=== PATIENT | female | born 1940 | race Caucasian/White ===

== ENCOUNTER → 2016-11-07 | Outpatient (CLI) | payer MEDICARE ==
--- NOTE | 2016-11-07 09:22 | CT ---
EXAMINATION TYPE: CT abdomen pelvis wo con DATE OF EXAM: 11/07/2016 7:23 AM COMPARISON: NONE HISTORY: C/O upper abdomen pain CT DLP: 299.2 mGycm Automated exposure control for dose reduction was used. TECHNIQUE: Helical acquisition of images from the lung bases through the pelvis. FINDINGS: LUNG BASES: No significant abnormality is appreciated. There is a lead present in the right ventricle . Posterior diaphragmatic hernias containing fat. AORTA: Atheromatous change is present, there is no evident aneurysm. LIVER/GB: Patient is post cholecystectomy. Liver is unremarkable. PANCREAS: No significant abnormality is seen. There is a moderate-sized duodenal diverticulum, air-fl uid level at the second and third portion of the duodenum. SPLEEN: No significant abnormality is seen. ADRENALS: No significant abnormality is seen. KIDNEYS: Right kidney is absent. REPRODUCTIVE ORGANS: Uterus and adnexal structures are absent. URINARY BLADDER: No significant abnormality is seen. The bladder is decompressed BOWEL: There is a malrotation suspected. Normal position of the fourth portion of the duodenum is no t present, small bowel is right-sided and does not cross midline. Extensive diverticular changes asso ciated with the sigmoid colon. FREE AIR: No Free Air is visible. ASCITES: None visible. PELVIC ADENOPATHY: None visualized. RETROPERITONEAL ADENOPATHY: No Retroperitoneal Adenopathy visible. OSSEOUS STRUCTURES: Degenerative disc changes are present within the visualized spine. Postop change noted to the right hip. IMPRESSION: POSTOP CHANGES. SIZABLE DUODENAL DIVERTICULUM IS SUSPECTED, SUSPECT BOWEL MALROTATION. DIVERTICULOSIS AND ADDITIONAL FINDINGS ABOVE.
== END | disposition home or self-care (01) ==
LOC: RADCTMAIN 06:57
PROVIDERS: ATTEND Family Medicine
DX: R10.9 Unspecified abdominal pain (principal); Z90.5 Acquired absence of kidney; Z98.890 Other specified postprocedural states
CPT/HCPCS: 74176

== ENCOUNTER → 2017-05-24 | Outpatient (CLI) | payer MEDICARE ==
--- NOTE | 2017-05-24 17:15 | XR ---
EXAMINATION TYPE: XR ribs RT w pa chest xray DATE OF EXAM: 05/24/2017 COMPARISON: NONE HISTORY: Rib pain TECHNIQUE: 5 views FINDINGS: I see no pleural effusion or pneumothorax. Lungs are clear of infiltrate. Heart and mediast inum are within normal limits. There is a left axillary pacemaker with the lead tips in the right mary tricle. I see no rib fracture. IMPRESSION: No cardiopulmonary disease. No fracture.
== END | disposition home or self-care (01) ==
LOC: RADXRYALE 16:41
PROVIDERS: ATTEND Family Medicine
DX: R07.81 Pleurodynia (principal)

== ENCOUNTER 2017-09-06 09:07 | Emergency (ER) | payer MEDICARE ==
[2017-09-06 09:13] VITALS: BP 204/81; PULSE 60; RESP 18; TEMP 97.1
--- NOTE | 2017-09-06 09:35 | ED ---
General Adult HPI - General Chief complaint: Fall Stated complaint: right arm pain Time Seen by Provider: 09/06/17 09:16 Source: patient, RN notes reviewed, old records reviewed Mode of arrival: wheelchair Limitations: no limitations - History of Present Illness Initial comments: This is a 77-year-old female to the ER status post fall. Patient is on blood thinners, Xarelto. Patient was walking out of her house did fall off the top step and fell forward landing on her right shoulder and hitting head. No loss of consciousness. Patient complaining of severe right shoulder pain no other complaints - Related Data Home Medications Medication Instructions Recorded Confirmed Atorvastatin [Lipitor] 10 mg PO HS 03/12/14 03/01/15 Metoprolol Succinate [Toprol XL] 50 mg PO BID 03/12/14 03/01/15 Omeprazole 40 mg PO DAILY 03/12/14 03/01/15 Cholecalciferol [Vitamin D3] 2,000 unit PO DAILY 11/29/14 03/01/15 Flecainide Acetate 50 mg PO BID 11/29/14 03/01/15 Rivaroxaban [Xarelto] 20 mg PO DAILY 03/01/15 03/01/15 Previous Rx's Medication Instructions Recorded Clindamycin HCl [Cleocin] 150 mg PO Q8H 7 Days cap 03/10/15 Allergies Allergy/AdvReac Type Severity Reaction Status Date / Time aspirin Allergy Severe Anaphylaxis Verified 09/06/17 09:15 epinephrine Allergy Severe Anaphylaxis Verified 09/06/17 09:15 Penicillins Allergy Severe Anaphylaxis Verified 09/06/17 09:15 Sulfa (Sulfonamide Allergy Severe Anaphylaxis Verified 09/06/17 09:15 Antibiotics) adhesive AdvReac Itching Verified 09/06/17 09:15 alprazolam [From Xanax] AdvReac Confusion Verified 09/06/17 09:15 ciprofloxacin [From Cipro] AdvReac Nausea & Verified 09/06/17 09:15 Vomiting codeine AdvReac Nausea & Verified 09/06/17 09:15 Vomiting hydrocodone AdvReac Nausea & Verified 09/06/17 09:15 Vomiting hydromorphone HCl AdvReac Nausea & Verified 09/06/17 09:15 [From Dilaudid] Vomiting iodine AdvReac Renal Verified 09/06/17 09:15 Failure meperidine HCl [From Demerol] AdvReac Nausea & Verified 09/06/17 09:15 Vomiting morphine AdvReac Nausea, Verified 09/06/17 09:15 chest tightness oxycodone [Oxycodone] AdvReac Nausea & Verified 09/06/17 09:15 Vomiting Review of Systems ROS Statement: Those systems with pertinent positive or pertinent negative responses have been documented in the HPI. ROS Other: All systems not noted in ROS Statement are negative. Past Medical History Past Medical History: Atrial Fibrillation Additional Past Medical History / Comment(s): 11/29/14 Pt is a direct admit to [facility]. Pt had pacemaker inserted to L chest 2 weeks ago for AFIB. The pacer site was edematous post insertion but is actually looking better per pt. This morning. however, pacer site split open. Pt called Dr. Plunkett's office this AM and was instructed to come to hospital. 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 History of Any Multi-Drug Resistant Organisms: None Reported Past Surgical History: Appendectomy, Breast Surgery, Section, Cholecystectomy, Hysterectomy, Orthopedic Surgery, Pacemaker, Tonsillectomy Additional Past Surgical History / Comment(s): repair fx rt leg, knee and ankle x2. Rt kideny removed, bilat mastectomy with breast implants, colonoscopy and egd in past couple months. Past Anesthesia/Blood Transfusion Reactions: Motion Sickness, Postoperative Nausea & Vomiting (PONV) Additional Past Anesthesia/Blood Transfusion Reaction / Comment(s): very sensitive to anesthesia. Past Psychological History: Depression Smoking Status: Former smoker Past Alcohol Use History: None Reported Past Drug Use History: None Reported - Past Family History Father Family Medical History: Cancer Daughter(s) Family Medical History: Cancer General Exam Limitations: no limitations General appearance: alert, in no apparent distress Head exam: Present: atraumatic, normocephalic, normal inspection Eye exam: Present: normal appearance, PERRL, EOMI. Absent: scleral icterus, conjunctival injection, periorbital swelling ENT exam: Present: normal exam, mucous membranes moist Neck exam: Present: normal inspection. Absent: tenderness, meningismus, lymphadenopathy Respiratory exam: Present: normal lung sounds bilaterally. Absent: respiratory distress, wheezes, rales, rhonchi, stridor Cardiovascular Exam: Present: regular rate, normal rhythm, normal heart sounds. Absent: systolic murmur, diastolic murmur, rubs, gallop, clicks GI/Abdominal exam: Present: soft, normal bowel sounds. Absent: distended, tenderness, guarding, rebound, rigid Extremities exam: Present: normal inspection, full ROM, normal capillary refill , other (Right shoulder pain, or decreased range of motion). Absent: tenderness , pedal edema, joint swelling, calf tenderness Back exam: Present: normal inspection Neurological exam: Present: alert, oriented X3, CN II-XII intact Psychiatric exam: Present: normal affect, normal mood Skin exam: Present: warm, dry, intact, normal color. Absent: rash Course Vital Signs 09/06/17 09:09 Temperature 97.1 F L Pulse Rate 60 Respiratory 18 Rate Blood Pressure 204/81 O2 Sat by Pulse 96 Oximetry Medical Decision Making - Medical Decision Making 77 female tear status post fall both ears, suitably and C-spine negative, x-ray right shoulder does show positive humerus fracture, patient will be discharged home with sling, patient control, follow-up with orthopedics - Radiology Data Radiology results: report reviewed (Chest x-ray pelvis x-ray negative for traumatic injury, x-ray shoulder positive for humeral head fracture, CT brain and C-spine negative for traumatic injury), image reviewed Disposition Clinical Impression: Closed right humeral fracture, Fall Disposition: HOME SELF-CARE Condition: Good Instructions: Arm Fracture in Adults (ED) Referrals: Nura Tadeo MD [STAFF PHYSICIAN] - 1-2 days
[2017-09-06] MEDS ORDERED: MORPHINE SULFATE 2 MG/ML SYRINGE IM STA (09:36)
--- NOTE | 2017-09-06 09:59 | XR ---
EXAMINATION TYPE: XR pelvis AP view DATE OF EXAM: 09/06/2017 CLINICAL HISTORY: Pelvic pain post fall. TECHNIQUE: A single AP view of the pelvis is obtained. COMPARISON: None. FINDINGS: There is no acute fracture/dislocation evident in the pelvis. The hip and sacroiliac join ts appear symmetric and unremarkable with mild bilateral femoral acetabular arthropathy demonstrated as medial joint space narrowing and acetabular roof sclerosis. Lateral right femoral fixation plate i s partially visualized with 4 transcortical screws. No evidence of hardware fracture, malalignment or loosening. Single surgical clip is noted along the superior endplate of right lateral aspect of L4 v ertebral body. Surgical clips are also noted within the right upper quadrant from prior cholecystecto my. Visualized bowel gas pattern is nonobstructive with no evidence of bowel enlargement. Mild degene rative changes of the lumbosacral junction are also noted. Generalized mild osseous demineralization . The overlying soft tissue appears unremarkable. IMPRESSION: 1. There is no acute fracture or dislocation in the pelvis. 2. No evidence of right femoral hardware fracture, malalignment or loosening. 3. Generalized mild osseous demineralization. 4. Mild bilateral femoral acetabular arthropathy and degenerative changes of the lumbosacral junction .
--- NOTE | 2017-09-06 09:59 | XR ---
EXAMINATION TYPE: XR chest 1V DATE OF EXAM: 09/06/2017 COMPARISON: 08/30/2016 HISTORY: 77-year-old female with pain after fall today TECHNIQUE: Single frontal view of the chest is obtained. FINDINGS: Left anterior chest wall pacemaker generator with right atrial and right ventricular leads. Hazy lowe r lung densities with underpenetration related to portable technique and overlying soft tissue. No co nsolidation, air leak, or pleural effusion seen. Surgical clips projecting at the upper abdomen. Ther e is a fracture of the proximal right humerus. On this view of the chest, this appears to be a transv erse surgical neck fracture with mild medial displacement. IMPRESSION: 1. Limitations due to portable technique and patient body habitus. No acute cardiopulmonary process s een. 2. Fracture of the proximal right humerus. On the frontal view of the chest, this appears to be a mil dly displaced surgical neck fracture. Dedicated views can further evaluate.
[2017-09-06] MEDS ORDERED: MORPHINE SULFATE 2 MG/ML SYRINGE IVP STA (10:48)
--- NOTE | 2017-09-06 10:49 | CT ---
EXAMINATION TYPE: CT brain bethine wo con DATE OF EXAM: 09/06/2017 COMPARISON: Brain 07/18/2016 HISTORY: 77-year-old female with pain after fall CT DLP: Brain 945.5, Cervical 342.2 mGycm Automated exposure control for dose reduction was used. Technique: Examination of the head was done in axial plane without intravenous contrast. Coronal and sagittal reconstructions performed. CT of the cervical spine was obtained in axial plane without intravenous injection of contrast mater ial. Coronal and sagittal reformatted images were obtained from the axial views for evaluation of f ractures, spinal alignment and canal. FINDINGS: Head: There is no evidence of acute intracranial hemorrhage, acute ischemic changes, mass, mass-effect, or extra-axial fluid collection. There is no effacement of cerebral sulci or basal subarachnoid cister ns. There is no hydrocephalus. There is no midline shift. Devi-white matter distinction is preserv ed. [id number] bifrontal cerebral cortical atrophy. Mild to moderate patchy white matter hypodensit ies suggest chronic small vessel ischemic disease. Paranasal sinuses and mastoid air cells well pneumatized. Orbits and globes are intact. No calvarial fracture. Cervical spine: No craniocervical junction abnormality, predental space widening, or prevertebral soft tissue swellin g. No acute fracture of the cervical spine. Alignment is maintained. Severe disc/endplate degenerative change particularly at C3-C6 levels with disc osteophyte complex fo rmation and corresponding uncovertebral joint and facet degenerative change. Changes result in moderate narrowing of the spinal canal at C3-C4 and C4-C5. Moderate neuroforaminal stenoses at these levels as well. Sagittal and coronal reformatted images confirm above findings. COMBINED IMPRESSION: 1. No acute intracranial abnormality seen. [place]-in-mphzttac atrophy and changes of chronic small vess el ischemic disease. 2. No acute fracture or malalignment of the cervical spine. 3. Advanced disc/endplate degenerative changes as well as facet/uncovertebral joint arthropathy parti cularly from C3 through C6 levels with moderate spinal canal stenosis at C3-C4 and C4-C5.
--- NOTE | 2017-09-06 10:54 | CT ---
EXAMINATION TYPE: CT shoulder RT wo con DATE OF EXAM: 09/06/2017 COMPARISON: Chest radiograph 09/06/2017 HISTORY: 77-year-old female with fall and right shoulder injury TECHNIQUE: Contiguous axial scanning of the right shoulder without IV contrast. Coronal and sagittal reconstructions performed. CT DLP: 265.7 mGycm Automated exposure control for dose reduction was used. FINDINGS: Partially visualized right breast prosthesis. Visualized right hemithorax is clear. AC joint is intact. There is a comminuted fracture of the proximal right humerus. Fractures involve the greater tuberosit y which is displaced by 8 mm there is a cortical fragment along the lateral margin of the surgical ne ck which is rotated by 90 degrees with the fragment measuring 1.5 x 2.1 cm. Additional transverse walker gical neck fracture with mild medial displacement. No fracture seen extending to the humeral head articular surface. No subluxation or dislocation. No atrophy of the rotator cuff musculature. IMPRESSION: COMMINUTED FRACTURE OF THE PROXIMAL RIGHT HUMERUS. FRACTURES INVOLVE THE GREATER TUBEROSITY AND SURGI DOMENICO NECK. THERE IS OVERALL MILD DISPLACEMENT WITH THE GREATER TUBEROSITY FRACTURE FRAGMENT DISPLACED UP TO 8 MM. HOWEVER, A CORTICAL FRAGMENT MEASURING 2.1 X 1.5 CM IS ROTATED BY 90 DEGREES ALONG THE LA TERAL MARGIN OF THE SURGICAL NECK.
[2017-09-06] MEDS ORDERED: ONDANSETRON ODT 4 MG TAB PO STA (11:00)
== END 2017-09-06 11:45 | disposition home or self-care (01) ==
LOC: EC 09:07
DX: S42.251A Displaced fracture of greater tuberosity of right humerus, initial encounter for closed fracture (principal); S42.211A Unspecified displaced fracture of surgical neck of right humerus, initial encounter for closed fracture; I48.91 Unspecified atrial fibrillation; Z87.891 Personal history of nicotine dependence; Z88.0 Allergy status to penicillin; Z88.1 Allergy status to other antibiotic agents; Z88.2 Allergy status to sulfonamides; Z88.6 Allergy status to analgesic agent; Z88.5 Allergy status to narcotic agent; Z88.8 Allergy status to other drugs, medicaments and biological substances; Z91.048 Other nonmedicinal substance allergy status; Z79.01 Long term (current) use of anticoagulants; Z79.899 Other long term (current) drug therapy; W10.9XXA Fall (on) (from) unspecified stairs and steps, initial encounter; Y92.009 Unspecified place in unspecified non-institutional (private) residence as the place of occurrence of the external cause
CPT/HCPCS: 71010; 72170; 72125; 70450; 73200; 99284; 96372; 96374; J2270

== ENCOUNTER → 2017-10-30 | Outpatient (CLI) | payer MEDICARE ==
[2017-10-30 12:41] LABS: Basophils # (A) 0.1 k/uL (0-0.2); Basophils % (A) 1 %; Eosinophils # (A) 0.1 k/uL (0-0.7); Eosinophils % (A) 1 %; HCT 37.5 % (34.0-46.0); Lymphocytes # (A) 2.8 k/uL (1.0-4.8); Lymphocytes % (A) 38 %; MCH 29.8 pg (25.0-35.0); MCHC 32.1 g/dL (31.0-37.0); MCV 92.8 fL (80.0-100.0); Mean Platelet Volume 8.6; Monocytes # (A) 0.5 k/uL (0-1.0); Monocytes % (A) 6 %; Neutrophils # (A) 3.9 k/uL (1.3-7.7); Neutrophils % (A) 52 %; Platelet Count 259 k/uL (150-450); RBC 4.04 m/uL (3.80-5.40); RDW 13.5 % (11.5-15.5); WBC 7.4 k/uL (3.8-10.6)
[2017-10-30 13:03] LABS: Albumin 4.2 g/dL (3.5-5.0); Calcium 10.2 mg/dL (8.4-10.2); Potassium 4.7 mmol/L (3.5-5.1); Total Bilirubin 0.4 mg/dL (0.2-1.3); Total Protein 7.6 g/dL (6.3-8.2)
== END | disposition home or self-care (01) ==
LOC: LABWHC1 11:09
PROVIDERS: ATTEND Family Medicine
DX: I12.9 Hypertensive chronic kidney disease with stage 1 through stage 4 chronic kidney disease, or unspecified chronic kidney disease (principal); N18.3 Chronic kidney disease, stage 3 (moderate); K21.0 Gastro-esophageal reflux disease with esophagitis; E78.2 Mixed hyperlipidemia; E55.9 Vitamin D deficiency, unspecified; I48.0 Paroxysmal atrial fibrillation
CPT/HCPCS: 36415; 80053; 80061; 82306; 84443; 85025

== ENCOUNTER → 2018-03-21 | Outpatient (CLI) | payer MEDICARE ==
--- NOTE | 2018-03-24 09:46 | BD ---
EXAMINATION TYPE: Axial Bone Density DATE OF EXAM: 03/21/2018 COMPARISON: 08.25.2013 CLINICAL HISTORY: 78 YR OLD FEMALE.....ICD-10 CODE: M81.8 OSTEOPOROSIS WITHOUT FX Height: 60.3 Weight: 136 FRAX RISK QUESTIONS: Family History (Parent hip fracture): CLAIMS NO FXS History of Fracture in Adulthood: YES Secondary Osteoporosis: YES 3. Menopause before 45: YES RISK FACTORS HISTORY OF: HX OF FX TO SHOULDER, HUMERUS...2017, RT FEMUR SPIRAL FX > AGE 50 Surgery to RT FEMUR FX WITH RODDING TO HIP...> AGE 50 Family History of Osteoporosis: YES, SISTERS, MOTHER AND FATHER Diet low in dairy products/other sources of calcium: NO Postmenopausal woman: YES, IN HER 40 YRS OLD Lost more than 2 inches in height since high school: YES Frequent falls: UNSTEADY MEDICATIONS: Additional Medications: CALCIUM AND VIT D, BP MEDS, REFLUX MEDS, STATINS FOR CHOLESTEROL, NSAID,CHRISTIAN RAL, BLOOD THINNERS Additional History: RENAL HX, HYPERTENSION...STROKE HX, HEART HX. EXAM MEASUREMENTS: Bone mineral densitometry was performed using the [employer] System. Bone mineral density as measured about the Lumbar spine is: ----- L1-L4(G/cm2): 0.818 T Score Values are as follows: ----- L1: -2.5 ----- L2: -3.9 ----- L3: -3.2 ----- L4: -2.8 ----- L1-L4: -3.0 Bone mineral density has: Decreased -7.6% since study of: 09.03.2013 Bone mineral density about the L hip (g/cm2): 0.668 T Score values are as follows: -----L Neck: -2.7 -----L Total: -2.7 Bone mineral density has: Decreased -12.9% since study of: 09.03.2013 FRAX%s: THERE IS A 29.1% CHANCE OF A MAJOR OSTEOPOROTIC FX AND A 10.1% FOR A HIP FX.....PROBABILI TY OF FX IN 10 YRS TIME IMPRESSION: Osteoporosis (T Score less than -2.5). There is increased fracture risk and therapy is usually indicated based on age. Re-Screen 1-2 years. NOTE: T-SCORE=SD OF THE YOUNG ADULT MEAN.
== END | disposition home or self-care (01) ==
LOC: RADBDWWP 14:31
PROVIDERS: ATTEND Family Medicine
DX: M81.0 Age-related osteoporosis without current pathological fracture (principal)
CPT/HCPCS: 77080

== ENCOUNTER → 2018-05-30 | Outpatient (CLI) | payer MEDICARE ==
--- NOTE | 2018-05-30 14:56 | CT ---
EXAMINATION TYPE: CT abdomen pelvis wo con DATE OF EXAM: 05/30/2018 COMPARISON: 11/07/2016 HISTORY: Rectal bleeding, constipation x [address] DLP: 665 mGycm Automated exposure control for dose reduction was used. TECHNIQUE: Helical acquisition of images was performed from the lung bases through the pelvis. FINDINGS: Lack of intravenous and oral contrast limits evaluation of both the hollow and solid viscer a. LUNG BASES: No significant abnormality is appreciated. LIVER/GB: No significant abnormality is appreciated. Gallbladder surgically absent. PANCREAS: Mild parenchymal atrophy is seen without ductal dilatation. SPLEEN: No splenomegaly. ADRENALS: Adrenal glands are symmetric without focal nodule or thickening. 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 FREE AIR: No free air is visualized RETROPERITONEAL ADENOPATHY: No greater than 1 cm short axis lymph nodes are seen within the abdomen or pelvis. REPRODUCTIVE ORGANS: Uterus is surgically absent. URINARY BLADDER: Largely decompressed. OSSEOUS STRUCTURES: Minimal multilevel degenerative changes of the thoracic spine femoral acetabular joints are noted. Partial visualization of the right femoral fixation device is also seen. BOWEL: There is a well-formed rectal fecal ball measuring up to 6.0 cm creating mild colonic promine nce. No air is seen within the rectal wall or rectal wall thickening. No significant perirectal infla mmatory fat stranding. Moderate amount retained colonic stool seen throughout the colon with pancolon ic diverticulosis. No perienteric or pericolonic fat stranding. Small bowel remains nondilated. Howev er there are few air-fluid levels within the small bowel indicative of mild ileus. OTHER: Extensive atherosclerosis is seen of the abdominal aorta and its branches. No aneurysmal dilat ation. IMPRESSION: NO EVIDENCE OF OBSTRUCTION. COLONIC FECAL STASIS WITH RECTAL FECAL BALL MEASURING UP TO 6 CM CREATING MILD COLONIC PROMINENCE HOWEVER THERE IS NO EVIDENCE OF STERCORAL COLITIS AT THIS TIME. PROLAPSE LARGE AND SMALL BOWEL ARE NOTED INTO THE RIGHT RETROPERITONEUM FROM RIGHT RENAL ABSENCE.
== END | disposition home or self-care (01) ==
LOC: RADCTMAIN 13:04
PROVIDERS: ATTEND Family Medicine
DX: R10.31 Right lower quadrant pain (principal); K59.01 Slow transit constipation; K56.690 Other partial intestinal obstruction
CPT/HCPCS: 74176

== ENCOUNTER → 2018-05-30 | Outpatient (CLI) | payer MEDICARE ==
--- NOTE | 2018-05-30 12:10 | XR ---
EXAMINATION TYPE: XR abdomen 2V DATE OF EXAM: 05/30/2018 11:31 AM CLINICAL HISTORY: Constipation and rectal bleeding with right lower quadrant pain for 4 days TECHNIQUE: Upright and supine images of the abdomen were obtained. COMPARISON: None. FINDINGS: Cholecystectomy clips are noted. Surgical clip is also seen within the right lower quadrant . Scattered gas is seen in nondilated small bowel loops. Gas and fecal material is seen in nondilated colon. There is no visceromegaly, pneumoperitoneum, or abnormal calcification appreciated. The lung bases are clear and the osseous structures are intact. IMPRESSION: Moderate amount retained colonic stool is noted. Nonobstructive bowel gas pattern.
== END | disposition home or self-care (01) ==
LOC: RADXRYALE 11:15
PROVIDERS: ATTEND Family Medicine
DX: K59.00 Constipation, unspecified (principal); K62.5 Hemorrhage of anus and rectum
CPT/HCPCS: 74019

== ENCOUNTER → 2018-07-07 | Outpatient (CLI) | payer MEDICARE ==
--- NOTE | 2018-07-07 12:37 | XR ---
EXAMINATION TYPE: XR Hip Complete LT DATE OF EXAM: 07/07/2018 CLINICAL HISTORY: Generalized left hip pain. TECHNIQUE: AP and frogleg views of the left hip are obtained. COMPARISON: Pelvic x-ray September 06, 2017. FINDINGS: Osseous structures remain demineralized. There is no acute fracture/dislocation evident in the left hip. Moderate axial joint space loss with mild acetabular spurring is redemonstrated in the left hip. The overlying soft tissue appears unremarkable. IMPRESSION: As above. No significant interval change or progression from prior study.
== END | disposition home or self-care (01) ==
LOC: RADXRYALE 11:33
PROVIDERS: ATTEND Family Medicine
DX: M76.892 Other specified enthesopathies of left lower limb, excluding foot (principal)
CPT/HCPCS: 73502

== ENCOUNTER → 2019-04-21 | Outpatient (CLI) | payer MEDICARE ==
--- NOTE | 2019-04-21 15:04 | XR ---
EXAMINATION TYPE: XR shoulder complete RT DATE OF EXAM: 04/21/2019 CLINICAL HISTORY: Chronic right shoulder pain TECHNIQUE: Three views of the right shoulder are obtained. COMPARISON: None. FINDINGS: There is no acute fracture/dislocation evident in the right shoulder. There is a question old fracture deformity of the proximal humerus at the surgical neck as there is mild deformity. This is well corticated. The acromioclavicular and glenohumeral joint spaces appear mildly narrowed. The visualized ribs are intact and unremarkable. Generalized osseous demineralization and moderate degen erative change of the spine are partially seen as well as partial visualization of the left sided car diac device. IMPRESSION: There is no acute fracture or dislocation in the right shoulder. Mild glenohumeral and a cromio clavicular arthropathy.
--- NOTE | 2019-04-21 15:15 | XR ---
EXAMINATION TYPE: XR thoracic spine complete DATE OF EXAM: 04/21/2019 CLINICAL HISTORY: Back pain and neck pain TECHNIQUE: Frontal, lateral, and swimmer's view of thoracic spine are obtained. COMPARISON: None. FINDINGS: Thoracic spine show satisfactory alignment without evidence of acute fracture or dislocatio n. Vertebral body heights are preserved. Multilevel intervertebral disc space narrowing is seen with bridging anterior osteophytes of the midthoracic spine and small anterior osteophytes of the remaind er of the thoracic spine. Cervical spine is not visualized and cannot be evaluated in this patient wi th back pain. There is diffuse osseous demineralization and moderate atherosclerosis of the aorta inc identally seen. Visualized ribs are unremarkable. IMPRESSION: No acute fracture or malalignment is seen in the thoracic spine. Moderate multilevel deg enerative disc disease of the thoracic spine is osseous demineralization.
== END | disposition home or self-care (01) ==
LOC: RADXRYALE 10:48
PROVIDERS: ATTEND Family Medicine
DX: M51.34 Other intervertebral disc degeneration, thoracic region (principal); M19.011 Primary osteoarthritis, right shoulder
CPT/HCPCS: 72072

== ENCOUNTER → 2019-05-01 | Outpatient (CLI) | payer MEDICARE ==
--- NOTE | 2019-05-01 15:25 | CT ---
EXAMINATION TYPE: CT brain wo con DATE OF EXAM: 05/01/2019 COMPARISON: 09/06/2017 HISTORY: Pt c/o dizziness, mild cognitive impairment. Pt states she had a fall in 2017, and symptoms have been present since fall, w/ cognitive issues just recent CT DLP: [address] of the brain was performed. The ventricles, basal cisterns and sulci overlying the cerebral convexities demonstrate mild enlargem ent. There is no evidence for intracranial hemorrhage or sulcal effacement. There is decreased attenuation about the periventricular white matter and deep white matter of both c erebral hemispheres, compatible with chronic small vessel ischemia. Differential diagnosis does inclu de demyelination. No mass effects are seen.No midline shift. Osseous calvarium is intact. If symptoms persist consider MRI. IMPRESSION: 1. Age related atrophic and chronic small vessel ischemic change without acute intracranial process s een at this time.
== END | disposition home or self-care (01) ==
LOC: RADCTMAIN 14:38
PROVIDERS: ATTEND Family Medicine
DX: G31.1 Senile degeneration of brain, not elsewhere classified (principal); I67.82 Cerebral ischemia; Z95.0 Presence of cardiac pacemaker
CPT/HCPCS: 70450

== ENCOUNTER → 2019-06-26 | Outpatient (CLI) | payer MEDICARE ==
[2019-06-26 13:18] LABS: Basophils # (A) 0.1 k/uL (0-0.2); Basophils % (A) 1 %; Eosinophils # (A) 0.1 k/uL (0-0.7); Eosinophils % (A) 2 %; HCT 37.3 % (34.0-46.0); HGB 12.5 gm/dL (11.4-16.0); Lymphocytes # (A) 3.6 k/uL (1.0-4.8); Lymphocytes % (A) 43 %; MCH 29.9 pg (25.0-35.0); MCHC 33.4 g/dL (31.0-37.0); MCV 89.4 fL (80.0-100.0); Mean Platelet Volume 8.3; Monocytes # (A) 0.5 k/uL (0-1.0); Monocytes % (A) 5 %; Neutrophils # (A) 3.8 k/uL (1.3-7.7); Neutrophils % (A) 46 %; Platelet Count 182 k/uL (150-450); RBC 4.18 m/uL (3.80-5.40); RDW 13.3 % (11.5-15.5); WBC 8.3 k/uL (3.8-10.6)
[2019-06-26 14:29] LABS: Erythrocyte Sedimentation Rate 14 mm/hr (0-20)
== END | disposition home or self-care (01) ==
LOC: LABWHC1 11:40
PROVIDERS: ATTEND Physical Medicine & Rehabilitation
DX: E78.5 Hyperlipidemia, unspecified (principal); R51 Headache; M47.814 Spondylosis without myelopathy or radiculopathy, thoracic region; M51.34 Other intervertebral disc degeneration, thoracic region; R26.9 Unspecified abnormalities of gait and mobility; M47.812 Spondylosis without myelopathy or radiculopathy, cervical region; I11.9 Hypertensive heart disease without heart failure; M50.320 Other cervical disc degeneration, mid-cervical region, unspecified level; M50.321 Other cervical disc degeneration at C4-C5 level; M25.511 Pain in right shoulder; M19.011 Primary osteoarthritis, right shoulder; Z79.01 Long term (current) use of anticoagulants; Z95.0 Presence of cardiac pacemaker
CPT/HCPCS: 36415; 85025; 85652; 86140

== ENCOUNTER 2019-12-20 10:35 | Emergency (ER) | payer MEDICARE ==
[2019-12-20] MEDS ORDERED: ONDANSETRON 4 MG/2 ML VIAL IVP STA (10:58)
[2019-12-20] MEDS ORDERED: SODIUM CHLORIDE 0.9% 1,000 ML IV STA ×2 (10:58)
--- NOTE | 2019-12-20 11:02 | ED ---
General Adult HPI - General Chief complaint: Nausea/Vomiting/Diarrhea Stated complaint: Nausea Time Seen by Provider: 12/20/19 10:45 Source: patient, RN notes reviewed, old records reviewed Mode of arrival: wheelchair Limitations: no limitations - History of Present Illness Initial comments: Patient is a 79-year-old female who presents emergency Department today with general weakness, nausea, abdominal pain and poor appetite for the past week. Patient reports that she has had chicken soup yesterday and felt somewhat better after that but then persisted to have nausea. Patient states that she was seen at urgent care on Saturday and prescribed Zofran. Patient reports no fevers or chills. She does complain of feeling somewhat lightheaded likely due to dehydration. - Related Data Home Medications Medication Instructions Recorded Confirmed Metoprolol Succinate [Toprol XL] 50 mg PO BID 03/12/14 09/06/17 Omeprazole 40 mg PO QAM 03/12/14 09/06/17 Flecainide Acetate 50 mg PO BID 11/29/14 09/06/17 Rivaroxaban [Xarelto] 20 mg PO DAILY 03/01/15 09/06/17 Atorvastatin [Lipitor] 10 mg PO HS 09/06/17 09/06/17 Cholecalciferol (Vitamin D3) 2,000 unit PO DAILY 09/06/17 09/06/17 [Vitamin D3] Previous Rx's Medication Instructions Recorded Levofloxacin [Levaquin] 500 mg PO DAILY #7 tab 12/20/19 Metoclopramide [Reglan] 10 mg PO TID #20 tab 12/20/19 metroNIDAZOLE [Flagyl] 500 mg PO TID #21 tab 12/20/19 Allergies Allergy/AdvReac Type Severity Reaction Status Date / Time aspirin Allergy Severe Anaphylaxis Verified 12/20/19 10:43 epinephrine Allergy Severe Anaphylaxis Verified 12/20/19 10:43 Penicillins Allergy Severe Anaphylaxis Verified 12/20/19 10:43 Sulfa (Sulfonamide Allergy Severe Anaphylaxis Verified 12/20/19 10:43 Antibiotics) adhesive AdvReac Itching Verified 12/20/19 10:43 alprazolam [From Xanax] AdvReac Confusion Verified 12/20/19 10:43 ciprofloxacin [From Cipro] AdvReac Nausea & Verified 12/20/19 10:43 Vomiting codeine AdvReac Nausea & Verified 12/20/19 10:43 Vomiting hydrocodone AdvReac Nausea & Verified 12/20/19 10:43 Vomiting hydromorphone HCl AdvReac Nausea & Verified 12/20/19 10:43 [From Dilaudid] Vomiting iodine AdvReac Renal Verified 12/20/19 10:43 Failure meperidine HCl [From Demerol] AdvReac Nausea & Verified 12/20/19 10:43 Vomiting morphine AdvReac Nausea, Verified 12/20/19 10:43 chest tightness oxycodone [Oxycodone] AdvReac Nausea & Verified 12/20/19 10:43 Vomiting Review of Systems ROS Statement: Those systems with pertinent positive or pertinent negative responses have been documented in the HPI. ROS Other: All systems not noted in ROS Statement are negative. Past Medical History Past Medical History: Atrial Fibrillation Additional Past Medical History / Comment(s): 11/29/14 Pt is a direct admit to [facility]. Pt had pacemaker inserted to L chest 2 weeks ago for AFIB. The pacer site was edematous post insertion but is actually looking better per pt. This morning. however, pacer site split open. Pt called Dr. Plunkett's office this AM and was instructed to come to hospital. 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 History of Any Multi-Drug Resistant Organisms: None Reported Past Surgical History: Appendectomy, Breast Surgery, Section, Cholecystectomy, Hysterectomy, Orthopedic Surgery, Pacemaker, Tonsillectomy Additional Past Surgical History / Comment(s): repair fx rt leg, knee and ankle x2. Rt kideny removed, bilat mastectomy with breast implants, colonoscopy and egd in past couple months. Past Anesthesia/Blood Transfusion Reactions: Motion Sickness, Postoperative Nausea & Vomiting (PONV) Additional Past Anesthesia/Blood Transfusion Reaction / Comment(s): very sensitive to anesthesia. Past Psychological History: Depression Smoking Status: Former smoker Past Alcohol Use History: None Reported Past Drug Use History: None Reported - Past Family History Father Family Medical History: Cancer Daughter(s) Family Medical History: Cancer General Exam - General Exam Comments Initial Comments: 79-year-old female. Limitations: no limitations General appearance: alert, in no apparent distress Head exam: Present: atraumatic, normocephalic, normal inspection Eye exam: Present: normal appearance, PERRL, EOMI. Absent: scleral icterus, conjunctival injection, periorbital swelling ENT exam: Present: normal exam, mucous membranes moist Neck exam: Present: normal inspection. Absent: tenderness, meningismus, lymphadenopathy Respiratory exam: Present: normal lung sounds bilaterally. Absent: respiratory distress, wheezes, rales, rhonchi, stridor Cardiovascular Exam: Present: regular rate, normal rhythm, normal heart sounds. Absent: systolic murmur, diastolic murmur, rubs, gallop, clicks GI/Abdominal exam: Present: soft, tenderness (Left lower quadrant tenderness), normal bowel sounds. Absent: distended, guarding, rebound, rigid Extremities exam: Present: normal inspection, full ROM, normal capillary refill. Absent: tenderness, pedal edema, joint swelling, calf tenderness Back exam: Present: normal inspection Neurological exam: Present: alert, oriented X3, CN II-XII intact Psychiatric exam: Present: normal affect, normal mood Skin exam: Present: warm, dry, intact, normal color. Absent: rash Course Vital Signs 12/20/19 12/20/19 10:37 13:57 Temperature 97.7 F 97.6 F Pulse Rate 60 62 Respiratory 18 16 Rate Blood Pressure 167/61 183/73 O2 Sat by Pulse 98 97 Oximetry - Reevaluation(s) Reevaluation #1: 12/20/19 12:35 Patient had significant amount of diarrhea and emergency department. EKG Findings - EKG Comments: EKG Findings:: EKG shows electronic pacemaker, ventricular rate of 60 bpm. IA interval is 146 ms. QRS duration is 100 ms. QT QTc is 476 ms Medical Decision Making - Medical Decision Making Patient is a 79-year-old female who presents emergency department today with nausea, and left-sided abdominal pain. Worsening symptoms since Saturday. She does relate an history and questioning she has a a lot of pistachios last week. At this time Patient was given a CT without contrast due to history of only one kidney. CT shows evidence of mild thickening around the: Concern for acute diverticulitis. She said multiple rounds of diarrhea mucousy stool while in emergency department. I discussed treatment at this time with levaquin and flagyl. I discussed discharging the Patient with a prescription for Reglan as well as this did help with her nausea while in emergency department. I discussed the Patient needs to follow-up promptly with her primary care doctor. I did discuss possible admission and Patient states she preferred to be discharged home at this time. I discussed that if she had any fever or worsening pain to return to the emergency department. Patient is agreeable. - Lab Data Result diagrams: 12/20/19 11:20 12/20/19 11:20 Lab Results 12/20/19 12/20/19 12/20/19 Range/Units 11:20 11:20 11:20 WBC 7.2 (3.8-10.6) k/uL RBC 4.30 (3.80-5.40) m/uL Hgb 12.6 (11.4-16.0) gm/dL Hct 38.3 (34.0-46.0) % MCV 89.1 (80.0-100.0) fL MCH 29.3 (25.0-35.0) pg MCHC 32.9 (31.0-37.0) g/dL RDW 12.6 (11.5-15.5) % Plt Count 181 (150-450) k/uL Neutrophils % 63 % Lymphocytes % 23 % Monocytes % 10 % Eosinophils % 0 % Basophils % 0 % Neutrophils # 4.5 (1.3-7.7) k/uL Lymphocytes # 1.6 (1.0-4.8) k/uL Monocytes # 0.7 (0-1.0) k/uL Eosinophils # 0.0 (0-0.7) k/uL Basophils # 0.0 (0-0.2) k/uL Sodium 140 (137-145) mmol/L Potassium 4.2 (3.5-5.1) mmol/L Chloride 105 (98-107) mmol/L Carbon Dioxide 25 (22-30) mmol/L Anion Gap 10 mmol/L BUN 15 (7-17) mg/dL Creatinine 1.19 H (0.52-1.04) mg/dL Est GFR (CKD-EPI)AfAm 50 (>60 ml/min/1.73 sqM) Est GFR (CKD-EPI)NonAf 44 (>60 ml/min/1.73 sqM) Glucose 122 H (74-99) mg/dL Plasma Lactic Acid [place]ila 0.9 (0.7-2.0) mmol/L Calcium 9.5 (8.4-10.2) mg/dL Total Bilirubin 0.6 (0.2-1.3) mg/dL AST 36 (14-36) U/L ALT 26 (4-34) U/L Alkaline Phosphatase 83 (38-126) U/L Troponin I (0.000-0.034) ng/mL Total Protein 7.4 (6.3-8.2) g/dL Albumin 4.1 (3.5-5.0) g/dL Amylase 51 (30-110) U/L Lipase 78 (23-300) U/L Urine Color Urine Appearance (Clear) Urine pH (5.0-8.0) Ur Specific [place] (1.001-1.035) Urine Protein (Negative) Urine Glucose (UA) (Negative) Urine Ketones (Negative) Urine Blood (Negative) Urine Nitrite (Negative) Urine Bilirubin (Negative) Urine Urobilinogen (<2.0) mg/dL Ur Leukocyte Esterase (Negative) 12/20/19 12/20/19 Range/Units 11:20 13:05 WBC (3.8-10.6) k/uL RBC (3.80-5.40) m/uL Hgb (11.4-16.0) gm/dL Hct (34.0-46.0) % MCV (80.0-100.0) fL MCH (25.0-35.0) pg MCHC (31.0-37.0) g/dL RDW (11.5-15.5) % Plt Count (150-450) k/uL Neutrophils % % Lymphocytes % % Monocytes % % Eosinophils % % Basophils % % Neutrophils # (1.3-7.7) k/uL Lymphocytes # (1.0-4.8) k/uL Monocytes # (0-1.0) k/uL Eosinophils # (0-0.7) k/uL Basophils # (0-0.2) k/uL Sodium (137-145) mmol/L Potassium (3.5-5.1) mmol/L Chloride (98-107) mmol/L Carbon Dioxide (22-30) mmol/L Anion Gap mmol/L BUN (7-17) mg/dL Creatinine (0.52-1.04) mg/dL Est GFR (CKD-EPI)AfAm (>60 ml/min/1.73 sqM) Est GFR (CKD-EPI)NonAf (>60 ml/min/1.73 sqM) Glucose (74-99) mg/dL Plasma Lactic Acid Avila (0.7-2.0) mmol/L Calcium (8.4-10.2) mg/dL Total Bilirubin (0.2-1.3) mg/dL AST (14-36) U/L ALT (4-34) U/L Alkaline Phosphatase (38-126) U/L Troponin I <0.012 (0.000-0.034) ng/mL Total Protein (6.3-8.2) g/dL Albumin (3.5-5.0) g/dL Amylase (30-110) U/L Lipase (23-300) U/L Urine Color Colorless Urine Appearance Clear (Clear) Urine pH 6.5 (5.0-8.0) Ur Specific [place] 1.003 (1.001-1.035) Urine Protein Negative (Negative) Urine Glucose (UA) Negative (Negative) Urine Ketones Negative (Negative) Urine Blood Negative (Negative) Urine Nitrite Negative (Negative) Urine Bilirubin Negative (Negative) Urine Urobilinogen <2.0 (<2.0) mg/dL Ur Leukocyte Esterase Negative (Negative) - Radiology Data Radiology results: report reviewed CT shows sigmoid diverticulosis, mild pericolonic fat stranding could represent prominent vessels or some inflammation from mild acute diverticulitis. No abscess or free air. Circumferential bladder wall thickening with mild perivesicular stranding. Correlate to exclude cystitis. Patchy infiltrate in the right middle lobe. Correlating for any symptoms of pneumonia. Right kidney is absent. No evidence for free air or bowel instructed. Chest x-ray shows correlate for COPD. No acute cardiopulmonary processes identified. Disposition Clinical Impression: Diverticulitis, Nausea Disposition: HOME SELF-CARE Condition: Good Instructions (If sedation given, give patient instructions): Diverticulitis (ED), Diverticulitis Diet (ED) Additional Instructions: Patient advised to follow-up tomorrow with your primary care physician. Taking the antibiotics as prescribed. Patient should have a clear liquids and bland diet, bananas rice applesauce and toast. Avoid any foods with nuts or seeds. Prescriptions: metroNIDAZOLE [Flagyl] 500 mg PO TID #21 tab Levofloxacin [Levaquin] 500 mg PO DAILY #7 tab Metoclopramide [Reglan] 10 mg PO TID #20 tab Is patient prescribed a controlled substance at d/c from ED?: No Referrals: Alejandro Escamilla DO [Primary Care Provider] - 1-2 days Time of Disposition: 14:38
[2019-12-20] MEDS: MORPHINE SULFATE 4 MG/ML SYRINGE IV STA ×2 (11:29→11:40)
[2019-12-20 11:42] LABS: Basophils % (A) 0 %; Eosinophils % (A) 0 %; HCT 38.3 % (34.0-46.0); HGB 12.6 gm/dL (11.4-16.0); Lymphocytes # (A) 1.6 k/uL (1.0-4.8); Lymphocytes % (A) 23 %; MCH 29.3 pg (25.0-35.0); MCHC 32.9 g/dL (31.0-37.0); MCV 89.1 fL (80.0-100.0); Mean Platelet Volume 8.5; Monocytes # (A) 0.7 k/uL (0-1.0); Monocytes % (A) 10 %; Neutrophils # (A) 4.5 k/uL (1.3-7.7); Neutrophils % (A) 63 %; Platelet Count 181 k/uL (150-450); RDW 12.6 % (11.5-15.5); WBC 7.2 k/uL (3.8-10.6)
[2019-12-20 11:46] LABS: Albumin 4.1 g/dL (3.5-5.0); Calcium 9.5 mg/dL (8.4-10.2); Potassium 4.2 mmol/L (3.5-5.1); Total Bilirubin 0.6 mg/dL (0.2-1.3); Total Protein 7.4 g/dL (6.3-8.2)
--- NOTE | 2019-12-20 11:53 | XR ---
EXAMINATION TYPE: XR chest 2V DATE OF EXAM: 12/20/2019 COMPARISON: 09/06/2017 HISTORY: 79-year-old male with pain TECHNIQUE: PA and lateral views FINDINGS: Left anterior chest wall pacemaker generator with right atrial and right ventricular leads. Heart nor mal size. Hyperinflation with mild interstitial prominence. No consolidation or pleural effusion. Old healed right surgical neck fracture deformity. IMPRESSION: COPD without acute cardiopulmonary process.
--- NOTE | 2019-12-20 12:03 | XR ---
EXAMINATION TYPE: XR KUB DATE OF EXAM: 12/20/2019 Comparison: None Clinical History: 79-year-old female with pain Findings: No evidence for free intraperitoneal air. Cholecystectomy clips. No dilated small bowel or differential air-fluid levels. Mild stool right side the abdomen. Scattered air seen throughout the colon. Impression: No evidence for free air or bowel obstruction.
[2019-12-20] MEDS ORDERED: KETOROLAC 30 MG/ML 1 ML VIAL IVP STA (12:29)
--- NOTE | 2019-12-20 13:04 | CT ---
EXAMINATION TYPE: CT abdomen pelvis wo con DATE OF EXAM: 12/20/2019 COMPARISON: 05/30/2018 HISTORY: 79-year-old female LLQ pain CT DLP: 439 mGycm. Automated exposure control for dose reduction was used. TECHNIQUE: Contiguous axial scanning of the abdomen and pelvis without IV contrast. Coronal and sagit cristhian reconstructions performed. FINDINGS: Heart normal size with right ventricular pacer lead. No pericardial effusion. Some patchy infiltrate right middle lobe. No pleural effusion. Fat-containing Bochdalek hernias on dimas th sides. Noncontrast appearance of the liver, adrenal glands, left kidney, spleen with tiny hilar splenules, a nd atrophic pancreas show no gross abnormal body. There is a 5.0 cm diverticulum from the second portion of the duodenum projecting into the pancreatic head region. Cholecystectomy clips are present. Moderate atherosclerotic calcifications throughout the abdominal aorta and iliac arteries without ane urysm. No dilated small bowel, free fluid, or free air. Right kidney is absent. Sigmoid diverticulosis. There is very mild fat stranding along the proximal to mid sigmoid that could represent prominent. Colonic vessels are mild inflammation. Otherwise, no significant stool burden. No mesenteric or retroperitoneal lymphadenopathy. Mild/moderate circumferential bladder wall thickening. There is mild perivesicular fat stranding note d. Uterus surgically absent. Neither ovary is visualized. No abnormal fluid collection in the pelvis or pelvic lymphadenopathy. Bones: Plate and screw fixation proximal right femur. Mild degenerative change both hips. Facet arthr opathy mid to lower lumbar spine. Trace grade 1 anterolisthesis L4-L5. IMPRESSION: 1. Sigmoid diverticulosis. Mild pericolonic fat stranding could represent prominent vessels or some inflammation from mild acute diverticulitis. Clinically correlate. No abscess or free air. 2. Circumferential bladder wall thickening with mild perivesicular stranding. Correlate to exclude c ystitis. 3. Patchy infiltrate right middle lobe. Correlate for any symptoms of pneumonia. 4. Right kidney is absent.
[2019-12-20] MEDS ORDERED: SODIUM CHLORIDE 0.9% 1,000 ML IV ONE (13:14)
[2019-12-20] MEDS ORDERED: ACETAMINOPHEN TAB 500 MG TAB PO STA (13:14)
[2019-12-20 13:21] LABS: Appearance,Urine Clear (Clear); Bilirubin,Urine Negative (Negative); Blood,Urine Negative (Negative); Color,Urine Colorless; Glucose,Urine (UA) Negative (Negative); Ketones,Urine Negative (Negative); Leukocyte Esterase,Urine Negative (Negative); Nitrite,Urine Negative (Negative); PH, Urine 6.5 (5.0-8.0); Protein,Urine Negative (Negative); Specific Gravity,Urine 1.003 (1.001-1.035); Urobilinogen,Urine <2.0 mg/dL (<2.0)
[2019-12-20] MEDS ORDERED: METOCLOPRAMIDE 5 MG/ML 2 ML VIAL IVP STA (13:25)
[2019-12-20 14:00] VITALS: BP 183/73; PULSE 62; RESP 16; TEMP 97.6
[2019-12-20] MEDS ORDERED: LEVOFLOXACIN 750 MG TAB PO STA (14:00)
[2019-12-20] MEDS ORDERED: metroNIDAZOLE 500 MG TAB PO STA (14:00)
== END 2019-12-20 14:55 | disposition home or self-care (01) ==
LOC: EC 10:35
DX: K57.32 Diverticulitis of large intestine without perforation or abscess without bleeding (principal); R53.1 Weakness; R42 Dizziness and giddiness; I48.91 Unspecified atrial fibrillation; Z87.891 Personal history of nicotine dependence; Z88.0 Allergy status to penicillin; Z88.1 Allergy status to other antibiotic agents; Z88.2 Allergy status to sulfonamides; Z88.4 Allergy status to anesthetic agent; Z88.5 Allergy status to narcotic agent; Z88.6 Allergy status to analgesic agent; Z88.8 Allergy status to other drugs, medicaments and biological substances; Z91.048 Other nonmedicinal substance allergy status; Z79.01 Long term (current) use of anticoagulants; Z79.899 Other long term (current) drug therapy; Z95.0 Presence of cardiac pacemaker; Z90.49 Acquired absence of other specified parts of digestive tract; Z53.20 Procedure and treatment not carried out because of patient's decision for unspecified reasons
CPT/HCPCS: 36415; 93005; 80053; 82150; 83605; 83690; 84484; 85025; 81003; 87040; 71046; 74018; 74176; 99285; 96374; 96375 ×2; 96361 ×3; J2765; J2405; J1885

== ENCOUNTER → 2019-12-29 | Outpatient (CLI) | payer MEDICARE ==
--- NOTE | 2019-12-29 11:35 | USB ---
Reason for exam: clinical finding. History: Patient is postmenopausal. Family history of breast cancer in paternal cousin and breast cancer in 4 aunts. Implants in both breasts, 1990. Mastectomy of the right breast, 1973. Saline implants in both breasts, 1972. Mastectomy of the left breast. Took estrogen for 2 years beginning at age 32. Indicated problem(s): pain in the left breast. Physical Findings: Nurse did not find any significant physical abnormalities on exam. US Breast LT Left complete breast ultrasound includes all four quadrants, the retroareolar region and axilla. Finding demonstrates a 0.4 x 0.3 x 0.2cm oval, solid, hyperechoic, peripheral vascular lesion too small to characterize at 3 o'clock retroareolar, abutting implant surface. These results were verbally communicated with the patient and result sheet given to the patient on 12/29/19. ASSESSMENT: Probably benign, BI-RAD 3 RECOMMENDATION: Ultrasound of the left breast in 6 months. Manage on a clinical basis with regard to left pain.
== END | disposition home or self-care (01) ==
LOC: RADUSWWP 09:19
PROVIDERS: ATTEND Family Medicine
DX: N64.4 Mastodynia (principal); R07.89 Other chest pain

== ENCOUNTER → 2020-03-14 | Outpatient (CLI) | payer MEDICARE | END | disposition home or self-care (01) | LOC: LABWHC1 15:16 | PROVIDERS: ATTEND Internal Medicine Gastroenterology | DX: Z11.59 Encounter for screening for other viral diseases (principal) ==

== ENCOUNTER → 2020-03-16 | Day surgery (SDC) | payer MEDICARE ==
[2020-03-15 09:13] VITALS: BMI 25.7
[~2020-03-16] MED LIST: LACTATED RINGERS 1,000 ML IV SCH; LIDOCAINE 1% (10MG/ML) FOR IV START INTRADERMA PRN
[2020-03-16 07:44] VITALS: BP 172/71; PULSE 68; RESP 16; TEMP 98
== END ==
LOC: ORWHC2ENDO 07:08
PROVIDERS: ATTEND Internal Medicine Gastroenterology
DX: K22.70 Barrett's esophagus without dysplasia (principal); Z53.09 Procedure and treatment not carried out because of other contraindication; K21.9 Gastro-esophageal reflux disease without esophagitis; I48.91 Unspecified atrial fibrillation; E78.5 Hyperlipidemia, unspecified; Z79.01 Long term (current) use of anticoagulants; Z79.899 Other long term (current) drug therapy; Z88.1 Allergy status to other antibiotic agents; Z88.0 Allergy status to penicillin; Z88.5 Allergy status to narcotic agent; Z88.8 Allergy status to other drugs, medicaments and biological substances; Z91.041 Radiographic dye allergy status; Z91.048 Other nonmedicinal substance allergy status; Z88.2 Allergy status to sulfonamides; Z88.6 Allergy status to analgesic agent

== ENCOUNTER 2020-03-18 06:23 | Day surgery (SDC) | payer MEDICARE ==
[2020-03-17 14:33] VITALS: BMI 25.4
[~2020-03-18 06:23] MED LIST changes: -LIDOCAINE 1% (10MG/ML) FOR IV START INTRADERMA PRN
[2020-03-18 06:51] VITALS: RESP 16; TEMP 97.1
[2020-03-18] MEDS ORDERED: LIDOCAINE 1% (10MG/ML) FOR IV START INTRADERMA ONE (06:56)
[2020-03-18] MEDS ORDERED: LIDOCAINE 1% INJ 10MG/ML (20 ML MDV) ONE (07:16)
[2020-03-18] MEDS ORDERED: PROPOFOL 10 MG/ML 20 ML VIAL IV ONE (07:16)
--- NOTE | 2020-03-18 07:33 | P.PCN ---
Date of Procedure: 03/18/20 Procedure(s) Performed: BRIEF HISTORY: Patient is a 80-year-old, pleasant, white female, scheduled for an upper endoscopy with possible dilation as a part of evaluation of progressive dysphagia to solids for the last 30 years duration. She has long-standing history of GERD and has been on omeprazole 20 mg daily for several years.. PROCEDURE PERFORMED: Esophagogastroduodenoscopy with biopsy. PREOPERATIVE DIAGNOSIS: Progressive dysphagia to solids. IV sedation per anesthesia. PROCEDURE: After informed consent was obtained, the patient was brought into the endoscopy unit. IV sedation was administered by Anesthesia under continuous monitoring. Initially the Olympus GIF-140 video endoscope was inserted into the mouth. Esophagus intubated without any difficulty. However there appeared to be mildly atrophic dysfunction some tightness in the upper esophageal sphincter. The scope was gradually advanced into the stomach and duodenum and carefully examined. The bulb and the second part of the duodenum appeared normal. The scope at this time was withdrawn to the stomach, adequately insufflated with air, and upon careful examination, mucosa of the antrum, mild diffuse gastritis and biopsies were done from this area. The body, cardia and the fundus appeared normal. The scope was then withdrawn into the esophagus. Small sliding type hiatal hernia noted. The GE junction was located at 39 cm from the incisors. The esophagus appeared normal. There were no erosions or ulcerations seen, bi opsies were done from the and the patient tolerated the procedure well. IMPRESSION: 1. Small hiatal hernia but no evidence of esophagitis or esophageal stricture. 2. 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 3. Antral gastritis RECOMMENDATIONS: The findings of this examination were discussed with the patient as well as a family. She was advised to resume Xarelto today. Continue with Prilosec 20 mg daily and continue to follow antireflux measures. Recommend a soft diet..
[2020-03-18 07:47] VITALS: BP 173/74; PULSE 62
== END 2020-03-18 08:54 | disposition home or self-care (01) ==
LOC: ORWHC2ENDO 06:23
PROVIDERS: ATTEND Internal Medicine Gastroenterology
DX: K29.50 Unspecified chronic gastritis without bleeding (principal); K21.0 Gastro-esophageal reflux disease with esophagitis; K44.9 Diaphragmatic hernia without obstruction or gangrene; I10 Essential (primary) hypertension; E78.5 Hyperlipidemia, unspecified; Z79.01 Long term (current) use of anticoagulants; Z79.899 Other long term (current) drug therapy; Z88.2 Allergy status to sulfonamides; Z88.1 Allergy status to other antibiotic agents; Z88.5 Allergy status to narcotic agent; Z88.6 Allergy status to analgesic agent; Z88.0 Allergy status to penicillin; Z91.041 Radiographic dye allergy status; Z91.048 Other nonmedicinal substance allergy status; Z95.0 Presence of cardiac pacemaker
CPT/HCPCS: 43239; J2001; J2704; 88305

== ENCOUNTER → 2020-06-30 | Outpatient (CLI) | payer MEDICARE ==
--- NOTE | 2020-06-30 11:58 | USB ---
Reason for exam: follow-up at short interval from prior study. History: Patient is postmenopausal. Family history of breast cancer in paternal cousin and breast cancer in 4 aunts. Implants in both breasts, 1990. Mastectomy of the right breast, 1973. Saline implants in both breasts, 1972. Mastectomy of the left breast. Took estrogen for 2 years beginning at age 32. Physical Findings: Nurse Summary: implants firm bilaterally, no palpable noted, patient states pain over entire beast for years on left, poor historian (nurse justa). US Breast LT Technologist: Janet Matamoros Left complete breast ultrasound includes all four quadrants, the retroareolar region and axilla. Finding demonstrates a 0.5 x 0.4 x 0.4cm circular, hyperechoic, peripheral lesion at 3 o'clock. Implant leak difficult. These results were verbally communicated with the patient and result sheet given to the patient on 06/30/20. ASSESSMENT: Benign, BI-RAD 2 RECOMMENDATION: Routine screening mammogram of both breasts in 1 year. Manage patient on a clinical basis.
== END | disposition home or self-care (01) ==
LOC: RADUSWWP 09:54
PROVIDERS: ATTEND Family Medicine
DX: N63.20 Unspecified lump in the left breast, unspecified quadrant (principal)

== ENCOUNTER → 2020-09-14 | Outpatient (CLI) | payer MEDICARE ==
--- NOTE | 2020-09-14 09:17 | CT ---
EXAMINATION TYPE: CT abdomen pelvis wo con DATE OF EXAM: 09/14/2020 COMPARISON: 12/20/2019 and 05/30/2018 HISTORY: 80-year-old female with abdominal Pain CT DLP: 292.2 mGycm. Automated exposure control for dose reduction was used. TECHNIQUE: Contiguous axial scanning of the abdomen and pelvis without IV contrast. Coronal and sagit cristhian reconstructions performed. FINDINGS: Heart normal size without pericardial effusion. Right atrial and right ventricular pacer leads are de monstrated. Fatty Bochdalek hernias on both sides. Tiny hiatal hernia. Lung bases clear without pleur al effusion. Moderate atherosclerotic calcifications throughout the abdominal aorta and iliac arteries. Noncontrast appearance of the liver, adrenal glands, left kidney, spleen, pancreas appear within norm al limits. Redemonstrated large 4.5 cm diverticulum of the duodenum projecting into the pancreatic head region. Cholecystectomy clips. Right kidney is not visualized. Either surgically or congenitally absent. No dilated small bowel or free air. No mesenteric or retroperitoneal lymphadenopathy seen. Scattered mild stool. Left-sided colonic diverticulosis, extensive within the sigmoid colon. There is moderate pericolonic fat stranding along the distal sigmoid colon with associated wall thick ening and poorly defined fluid within the adjacent right adnexa measuring 4.9 x 2.5 x 2.8 cm (refer t o sagittal image 46 and axial image 57). Moderate circumferential bladder wall thickening. Uterus surgically absent. Neither ovary is visualized. Bones: Partially visualized plate and screw fixation along the right femoral shaft. Osteopenia. Degen erative changes of the hips. Hypertrophic facet arthropathy mid to lower lumbar spine with trace grad e 1 anterolisthesis at L4-L5. IMPRESSION: 1. Left-sided colonic diverticulosis, extensive in the sigmoid colon but with inflammation and wall t hickening along the distal sigmoid. Findings suggest acute diverticulitis. 2. Poorly defined fluid within the adjacent right adnexa measuring 4.9 x 2.5 x 2.8 cm could reflect a contained leak and infective fluid. No free air. Patient should be followed to ensure improvement wi th therapy. Surgical consultation may be beneficial. 3. Moderate circumferential bladder wall thickening could represent chronic bladder wall hypertrophy or cystitis. A [place] critical message alert has been initiated for Alejandro Escamilla DO via the [facility] Critical Results System on 09/14/2020 9:14 AM. This message alert has been sent to Alejandro Escamilla DO via the preferences provided by the clinician for the receipt of Radiology Critical Findings. [facility] – [place] [id number].
== END | disposition home or self-care (01) ==
LOC: RADCTMAIN 07:27
PROVIDERS: ATTEND Family Medicine
DX: K57.30 Diverticulosis of large intestine without perforation or abscess without bleeding (principal); K52.9 Noninfective gastroenteritis and colitis, unspecified; K63.89 Other specified diseases of intestine; N32.89 Other specified disorders of bladder
CPT/HCPCS: 74176

== ENCOUNTER → 2021-03-16 | Outpatient (CLI) | payer MEDICARE ==
--- NOTE | 2021-03-17 12:33 | MM ---
Reason for exam: clinical finding. Last mammogram was performed 8 years and 10 months ago. History: Patient is postmenopausal. Family history of breast cancer in paternal cousin, breast cancer in paternal aunt, and breast cancer in 2 sisters. Implants in both breasts, 1990. Mastectomy of the right breast, 1973. Saline implants in both breasts, 1972. Mastectomy of the left breast. Took estrogen for 2 years beginning at age 32. Indicated problem(s): non-bloody discharge and pain in the left breast. Physical Findings: Nurse did not find any significant physical abnormalities on exam. MG Diag Mamm Implants AMARIS w CAD Bilateral CC and MLO view(s) were taken. Prior study comparison: May 05, 2012, left diagnostic mammogram w/CAD. July 20, 2010, bilateral diagnostic digital mammog. There are scattered fibroglandular densities. No implant displaced views, bilateral mastectomy. Right subglandular silicone implants. Right implant contour irregular may be disrupted. Mammogram non-diagnostic exam. These results were verbally communicated with the patient and result sheet given to the patient on 03/16/21. ASSESSMENT: Incomplete: need additional imaging evaluation, BI-RAD 0 RECOMMENDATION: Ultrasound of the left breast. (area of pain and retroareolar)
--- NOTE | 2021-03-17 12:38 | USB ---
Reason for exam: additional evaluation requested from abnormal screening. History: Patient is postmenopausal. Family history of breast cancer in paternal cousin, breast cancer in paternal aunt, and breast cancer in 2 sisters. Implants in both breasts, 1990. Mastectomy of the right breast, 1973. Saline implants in both breasts, 1972. Mastectomy of the left breast. Took estrogen for 2 years beginning at age 32. US Breast Limited LT Left limited breast ultrasound including focal area of concern, retroareolar and axilla demonstrates a 5 x 4mm oval, hyperechoic lesion at 3 o'clock, a 12mm hyperechoic lesion at the axilla and a 9mm oval, hyperechoic lesion at the axilla. Hyperechoic structures may be due to implant disruption, chronic, similar to 06/30/20. These results were verbally communicated with the patient and result sheet given to the patient on 03/16/21. ASSESSMENT: Benign, BI-RAD 2 RECOMMENDATION: Surgical consultation. (implants) Manage patient on a clinical basis. Correlate to history of bilateral mastectomy. Called Dr. Escamilla's office with mammographic findings and office will contact patient's . PRELIMINARY REPORT CALLED AND FAXED TO DR. ESCAMILLA ON 03/17/21. Routine screening mammogram of both breasts in 1 year.
== END | disposition home or self-care (01) ==
LOC: RADMAMWWP 14:23
PROVIDERS: ATTEND Family Medicine
DX: N64.89 Other specified disorders of breast (principal); N64.52 Nipple discharge; Z78.0 Asymptomatic menopausal state; Z80.3 Family history of malignant neoplasm of breast; Z90.13 Acquired absence of bilateral breasts and nipples
CPT/HCPCS: 77066

== ENCOUNTER → 2022-11-13 | Outpatient (CLI) | payer MEDICARE ==
--- NOTE | 2022-11-13 19:32 | XR ---
EXAMINATION TYPE: XR ribs LT w pa chest xray DATE OF EXAM: 11/13/2022 COMPARISON: NONE HISTORY: Pain TECHNIQUE: Single view of the chest 4 views of the ribs are submitted. FINDINGS: The lungs are clear. No Evidence for pneumothorax. No evidence for focal contusion. Medi astinal structures are midline. Evaluation of the ribs fails to demonstrate evidence for displaced r ib fracture or secondary sign of rib fracture. IMPRESSION: Negative study
== END | disposition home or self-care (01) ==
LOC: RADXRYALE 16:47
PROVIDERS: ATTEND Family Medicine
DX: R07.82 Intercostal pain (principal)